=== PATIENT | female | born 1975 | race Caucasian/White ===

== ENCOUNTER → 2016-08-08 | Outpatient (CLI) | payer BC ==
--- NOTE | 2016-08-11 11:38 | MM ---
Reason for exam: screening (asymptomatic). Last mammogram was performed 1 year and 5 months ago. History: Patient is postmenopausal. Benign US RT VAD breast biopsy of the right breast, October 06, 2012. Taking hormonal contraceptives for 11 years beginning at age 25. Physical Findings: A clinical breast exam by your physician is recommended on an annual basis and results should be correlated with mammographic findings. MG Screening Mammo w CAD Bilateral CC and MLO view(s) were taken. Prior study comparison: February 21, 2015, bilateral MG screening mammo w CAD. April 09, 2012, CAD bilateral diagnostic mammogram. The breast tissue is heterogeneously dense. This may lower the sensitivity of mammography. No significant changes when compared with prior studies. ASSESSMENT: Benign, BI-RAD 2 RECOMMENDATION: Routine screening mammogram of both breasts in 1 year.
== END | disposition home or self-care (01) ==
LOC: RADMAMWWP 16:59
PROVIDERS: ATTEND Obstetrics & Gynecology
DX: Z12.31 Encounter for screening mammogram for malignant neoplasm of breast (principal)

== ENCOUNTER → 2017-09-18 | Outpatient (CLI) | payer BC ==
--- NOTE | 2017-09-21 12:02 | MM ---
Reason for exam: screening (asymptomatic). Last mammogram was performed 1 year and 1 month ago. History: Patient is postmenopausal. Benign US RT VAD breast biopsy of the right breast, October 06, 2012. Taking hormonal contraceptives for 11 years beginning at age 25. Physical Findings: A clinical breast exam by your physician is recommended on an annual basis and results should be correlated with mammographic findings. MG 3D Screening Mammo W/Cad Bilateral CC and MLO view(s) were taken. Prior study comparison: August 08, 2016, bilateral MG screening mammo w CAD. February 21, 2015, bilateral MG screening mammo w CAD. The breast tissue is extremely dense which could obscure a lesion on mammography. Finding: There are typically benign skin calcifications in both breasts. No suspicious abnormality. Right biopsy marker noted. No significant changes in finding since August 08, 2016 and February 21, 2015. ASSESSMENT: Benign, BI-RAD 2 RECOMMENDATION: Routine screening mammogram of both breasts in 1 year.
== END | disposition home or self-care (01) ==
LOC: RADMAMWWP 16:59
PROVIDERS: ATTEND Obstetrics & Gynecology
DX: Z12.31 Encounter for screening mammogram for malignant neoplasm of breast (principal)
CPT/HCPCS: 77063; 77067

== ENCOUNTER → 2018-09-23 | Outpatient (CLI) | payer BC ==
--- NOTE | 2018-09-24 10:23 | MM ---
Reason for exam: screening (asymptomatic). Last mammogram was performed 1 year ago. History: Benign US RT VAD breast biopsy of the right breast, October 06, 2012. Taking hormonal contraceptives for 18 years beginning at age 25. Physical Findings: A clinical breast exam by your physician is recommended on an annual basis and results should be correlated with mammographic findings. MG 3D Screening Mammo W/Cad Bilateral CC and MLO view(s) were taken. XCCL view(s) were taken of the right breast. Prior study comparison: September 18, 2017, bilateral MG 3d screening mammo w/cad. August 08, 2016, bilateral MG screening mammo w CAD. The breast tissue is heterogeneously dense. This may lower the sensitivity of mammography. Benign appearing stable bilateral calcifications. Previous mammotome biopsy in the right breast. No significant changes when compared with prior studies. ASSESSMENT: Benign, BI-RAD 2 RECOMMENDATION: Routine screening mammogram of both breasts in 1 year.
== END | disposition home or self-care (01) ==
LOC: RADMAMWWP 17:00
PROVIDERS: ATTEND Obstetrics & Gynecology
DX: Z12.31 Encounter for screening mammogram for malignant neoplasm of breast (principal)
CPT/HCPCS: 77063; 77067

== ENCOUNTER → 2020-03-01 | Outpatient (CLI) | payer BC ==
--- NOTE | 2020-03-01 09:04 | MM ---
Reason for exam: clinical finding. Last mammogram was performed 1 year and 5 months ago. History: Benign US RT VAD breast biopsy of the right breast, October 06, 2012. Taking hormonal contraceptives for 18 years beginning at age 25. Physical Findings: Nurse did not find any significant physical abnormalities on exam. MG 3D Diag Mammo W/Cad [facility] Bilateral CC and MLO view(s) were taken. Prior study comparison: September 23, 2018, bilateral MG 3d screening mammo w/cad. September 18, 2017, bilateral MG 3d screening mammo w/cad. Benign appearing bilateral calcifications. Previous mammotome biopsy in the right breast. These results were verbally communicated with the patient and result sheet given to the patient on 03/01/20. ASSESSMENT: Benign, BI-RAD 2 RECOMMENDATION: Routine screening mammogram of both breasts in 1 year.
--- NOTE | 2020-03-01 09:06 | USB ---
Reason for exam: clinical finding. History: Benign US RT VAD breast biopsy of the right breast, October 06, 2012. Taking hormonal contraceptives for 18 years beginning at age 25. US Breast Limited LT Left limited breast ultrasound including focal area of concern, retroareolar and axilla demonstrates a 8mm lymph node at the axilla tail. These results were verbally communicated with the patient and result sheet given to the patient on 03/01/20. ASSESSMENT: Benign, BI-RAD 2 RECOMMENDATION: Routine screening mammogram of both breasts in 1 year. Manage patient on a clinical basis.
== END | disposition home or self-care (01) ==
LOC: RADMAMWWP 06:56
PROVIDERS: ATTEND Obstetrics & Gynecology
DX: N63.20 Unspecified lump in the left breast, unspecified quadrant (principal); N63.10 Unspecified lump in the right breast, unspecified quadrant
CPT/HCPCS: 77062; 77066

== ENCOUNTER → 2021-07-29 | Outpatient (CLI) | payer BC ==
--- NOTE | 2021-08-01 11:12 | MM ---
Reason for exam: screening (asymptomatic). Last mammogram was performed 1 year and 5 months ago. History: Benign US RT VAD breast biopsy of the right breast, October 06, 2012. Taking hormonal contraceptives for 18 years beginning at age 25. Physical Findings: A clinical breast exam by your physician is recommended on an annual basis and results should be correlated with mammographic findings. MG 3D Screening Mammo W/Cad Bilateral CC and MLO view(s) were taken. Prior study comparison: March 01, 2020, bilateral MG 3d diag mammo w/cad [facility]. September 23, 2018, bilateral MG 3d screening mammo w/cad. The breast tissue is heterogeneously dense. This may lower the sensitivity of mammography. Previous mammotome biopsy in the right breast. Scattered benign punctate calcifications are unchanged. No significant changes when compared with prior studies. ASSESSMENT: Benign, BI-RAD 2 RECOMMENDATION: Routine screening mammogram of both breasts in 1 year. Patient should continue monthly self breast exams. A negative report should not preclude additional follow up of suspicious palpable abnormalities.
== END | disposition home or self-care (01) ==
LOC: RADMAMWWP 14:08
PROVIDERS: ATTEND Obstetrics & Gynecology
DX: Z12.31 Encounter for screening mammogram for malignant neoplasm of breast (principal)
CPT/HCPCS: 77063; 77067

== ENCOUNTER → 2023-01-13 | Outpatient (CLI) | payer BC ==
--- NOTE | 2023-01-14 08:28 | MM ---
Reason for Exam: Screening (asymptomatic). Last mammogram was performed 1 year(s) and 5 month(s) ago. Patient History: Menarche at age 12. First Full-Term at age 25. Currently using Hormonal Contraceptives, beginning at age 25 for 18 years. 10/06/2012, Benign Core Biopsy on the right side. Risk Values: Aniyah 5 year model risk: 1.3%. NCI Lifetime model risk: 12.1%. Prior Study Comparison: 09/23/2018 Bilateral Screening Mammogram, [facility]. 03/01/2020 Bilateral Diagnostic Mammogram, [facility]. 07/29/2021 Bilateral Screening Mammogram, [facility]. Tissue Density: The breast tissue is heterogeneously dense. This may lower the sensitivity of mammography. Findings: Analyzed By CAD. There is no suspicious group of microcalcifications or new suspicious mass in either breast. Scattered benign punctate calcifications are unchanged. Previous mammotome biopsy in the right breast. Overall Assessment: Benign, BI-RAD 2 Management: Screening Mammogram of both breasts in 1 year. A clinical breast exam by your physician is recommended on an annual basis and results should be correlated with mammographic findings. Note on Aniyah scores and lifetime risk: 1. A Aniyah score greater than 3% is considered moderate risk. If this is the case, consider specialist referral to assess eligibility for a risk reducing agent. If overall lifetime risk for the development of breast cancer is 20% or higher, the patient may qualify for future screening with alternating mammogram and breast MRI. Electronically signed and approved by: Joseph Arboleda D.O.
== END | disposition home or self-care (01) ==
LOC: RADMAMWWP 11:27
PROVIDERS: ATTEND Obstetrics & Gynecology
DX: Z12.31 Encounter for screening mammogram for malignant neoplasm of breast (principal)
CPT/HCPCS: 77063; 77067

== ENCOUNTER → 2023-11-20 | Outpatient (CLI) | payer BC ==
--- NOTE | 2023-11-20 10:50 | FL ---
EXAMINATION TYPE: FL UGI air DATE OF EXAM: 11/20/2023 8:54 AM CLINICAL INDICATION:Female, 48 years old with history of R10.13 epigastric pain; COMPARISON: None TECHNIQUE: The procedure was explained and patient history elicited. All patient questions were ans wered prior to start of procedure. A hockey scout radiograph of the abdomen was also reviewed. Multiple flu oroscopic spot images of the esophagus, stomach and duodenum were obtained following ingestion of liq uid barium and EZ-gas crystals. Fluoroscopic time: 1 minute 22 seconds Fluoroscopic images: 0 Radiographs taken: 51 DAP: [id number] [id number] FINDINGS: Upper GI examination: The hockey scout abdominal radiograph demonstrates a normal bowel gas pattern without dilated loops of small or large bowel. There is no evidence for organomegaly or pneumoperitoneum. No abnormal calcificat ions. The visualized osseous structures are intact. The esophagus appears unremarkable without evidence of focal stricture, ulceration or abnormal outpou cristel. No hiatal hernia was visualized. No evidence of gastroesophageal reflux was identified. The stomach and duodenum demonstrate a normal course and contour. There is no evidence of focal gastric or duodenal ulceration, stricture, or abnormal outpouching. IMPRESSION: Normal upper gastrointestinal examination.
[2023-11-20 11:50] LABS: Gliadin AB IgA, Deaminated Negative (Negative); Gliadin AB IgA, Unit <0.5 U/mL; Gliadin AB IgG, Deaminated Negative (Negative); Gliadin AB IgG, Unit <0.4 U/mL
== END | disposition home or self-care (01) ==
LOC: RADUSWWP 07:21
PROVIDERS: ATTEND Family Medicine
DX: R10.13 Epigastric pain (principal)
CPT/HCPCS: 74246; 83516

== ENCOUNTER → 2024-06-10 | Outpatient (CLI) | payer BC ==
--- NOTE | 2024-06-14 10:00 | MM ---
Reason for Exam: Screening (asymptomatic). Last mammogram was performed 1 year(s) and 5 month(s) ago. Patient History: Menarche at age 12. First Full-Term at age 25. Perimenopausal. Currently using Hormonal Contraceptives, beginning at age 25 for 18 years. 10/06/2012, Benign Core Biopsy on the right side. Risk Values: Aniyah 5 year model risk: 1.3%. NCI Lifetime model risk: 11.8%. Prior Study Comparison: 03/01/2020 Bilateral Diagnostic Mammogram, [facility]. 07/29/2021 Bilateral Screening Mammogram, [facility]. 01/13/2023 Bilateral MG 3D screening mammo w/cad, [facility]. Tissue Density: The breasts are extremely dense, which lowers the sensitivity of mammography. Findings: Analyzed By CAD. There is no suspicious group of microcalcifications or new suspicious mass in either breast. 9 appearing calcifications. Stable appearing lymph nodes in the left axilla. Postbiopsy changes right breast. Overall Assessment: Benign, BI-RAD 2 Management: Screening Mammogram of both breasts in 1 year. . Patient should continue monthly self-breast exams. A clinical breast exam by your physician is recommended on an annual basis. This exam should not preclude additional follow-up of suspicious palpable abnormalities. Note on Aniyah scores and lifetime risk: 1. A Aniyah score greater than 3% is considered moderate risk. If this is the case, consider specialist referral to assess eligibility for a risk reducing agent. 2. If overall lifetime risk for the development of breast cancer is 20% or higher, the patient may qualify for future screening with alternating mammogram and breast MRI. [facility], , 06/14/2024 9:58 AM. Electronically signed and approved by: Joe Bailon M.D. Radiologis
== END | disposition home or self-care (01) ==
LOC: RADMAMWWP 16:20
PROVIDERS: ATTEND Family Medicine
DX: Z12.31 Encounter for screening mammogram for malignant neoplasm of breast (principal); R92.343 Mammographic extreme density, bilateral breasts
CPT/HCPCS: 77063; 77067

== ENCOUNTER → 2024-06-21 | Outpatient (CLI) | payer BC ==
--- NOTE | 2024-06-21 09:35 | CT ---
EXAMINATION TYPE: CT abdomen wo/w con CT DLP: 953.5 mGycm, Automated exposure control for dose reduction was used. DATE OF EXAM: 06/21/2024 8:59 AM COMPARISON: Fluoroscopic upper GI 11/20/2023 CLINICAL INDICATION:Female, 48 years old with history of K21.9 reflux; RUQ pain, nausea and flank nati n TECHNIQUE: Standard CT of the abdomen before and after the uneventful administration of 100 mL of I sovue-370 intravenously. Oral contrast was administered. Coronal and sagittal reformats were performe d. FINDINGS: LOWER CHEST: Linear scarring or atelectasis within the lingula. Pectus excavatum. Trace pericardial e ffusion. ABDOMEN LIVER: No focal lesion. Enlarged measuring 20.0 cm in CC dimension. GALLBLADDER AND BILE DUCTS: Unremarkable. PANCREAS: Unremarkable. SPLEEN: Unremarkable. ADRENAL GLANDS: Unremarkable. KIDNEYS AND URETERS: No evidence of hydronephrosis. No right renal calculi. Punctate nonobstructive l eft renal calculus. The kidneys enhance symmetrically. Contrast is demonstrated within both collectin g systems on the delayed phase. STOMACH AND BOWEL: Stomach and duodenum are unremarkable. Enteric contrast reaches the distal small b owel. The appendix is within normal limits. No focal bowel wall thickening or surrounding inflammator y changes. No evidence of bowel obstruction. PERITONEUM: No evidence of pneumoperitoneum or free fluid. VASCULATURE: No evidence of aortic aneurysm. MUSCULOSKELETAL: No acute osseous abnormalities LYMPH NODES: No evidence for lymphadenopathy. SOFT TISSUE/ABDOMINAL WALL: Unremarkable IMPRESSION: 1. No CT evidence for an acute abdominal process. 2. Hepatomegaly. 3. Nonobstructive punctate left renal calculus. 4. Pectus excavatum. [facility], , 06/21/2024 9:33 AM
== END | disposition home or self-care (01) ==
LOC: RADCTMAIN 07:32
PROVIDERS: ATTEND Family Medicine
DX: K21.9 Gastro-esophageal reflux disease without esophagitis (principal); R16.0 Hepatomegaly, not elsewhere classified; N20.0 Calculus of kidney; Q67.6 Pectus excavatum; E66.9 Obesity, unspecified; Z68.30 Body mass index [BMI] 30.0-30.9, adult; K29.60 Other gastritis without bleeding
CPT/HCPCS: 74170; Q9967

== ENCOUNTER 2024-11-03 10:37 | Emergency (ER) | payer BC ==
--- NOTE | 2024-11-03 10:58 | ED ---
Abdominal Pain HPI - General Chief Complaint: Abdominal Pain Stated Complaint: Abd/back pain,Nausea Time Seen by Provider: 11/03/24 10:43 Source: patient, RN notes reviewed Mode of arrival: ambulatory Limitations: no limitations - History of Present Illness Initial Comments: This is a 49-year-old female who presents to the emergency department for abdomi nal pain. States that she has been dealing with epigastric/right upper quadrant pain for about a year. It is almost becoming a daily occurrence at this point. States that she has had outpatient CT scans, but has not yet had an ultrasound of her gallbladder. The CT scans have been normal. States that today the pain started to flare up on her around 7 AM, however it is much more severe than it typically is. She has nausea and radiation into the back. She had noodles and sauce for dinner last night. However, she states that almost anything she eats flares it up at this point. Denies any fevers/chills or changes in bowel or bladder habits. She does have a consultation with Dr. Patterson scheduled on 11/15. Complaint: abdominal pain - Related Data Home Medications Medication Instructions Recorded Confirmed Famotidine [Pepcid] 20 mg PO BID PRN 11/03/24 11/03/24 PARoxetine [Paxil] 10 mg PO DAILY 11/03/24 11/03/24 Pantoprazole [Protonix] 40 mg PO BID 11/03/24 11/03/24 RX: Cetirizine HCl 10 mg PO DAILY 11/03/24 11/03/24 SUMAtriptan succinate [Imitrex] 25 mg PO BID PRN 11/03/24 11/03/24 norethindrone-e.estradioL-iron 1 tab PO DAILY 11/03/24 11/03/24 [Amanda 24 Fe 1 mg-20 Mcg Tablet] Previous Rx's Medication Instructions Recorded HYDROcodone/APAP 7.5-325MG [Ravenna 1 tab PO Q4H PRN 3 Days #18 tab 11/03/24 7.5-325] Ketorolac [Toradol] 10 mg PO Q6HR PRN #15 tab 11/03/24 Ondansetron Odt [Zofran Odt] 4 mg PO Q8HR PRN #15 tab 11/03/24 Allergies Allergy/AdvReac Type Severity Reaction Status Date / Time No Known Allergies Allergy Verified 11/03/24 12:52 Review of Systems ROS Statement: Those systems with pertinent positive or pertinent negative responses have been documented in the HPI. ROS Other: All systems not noted in ROS Statement are negative. Past Medical History Past Medical History: No Reported History Past Surgical History: No Surgical Hx Reported Smoking Status: Never smoker General Exam Limitations: no limitations General appearance: alert, in distress Head exam: Present: atraumatic, normocephalic, normal inspection Respiratory exam: Present: normal lung sounds bilaterally. Absent: respiratory distress, wheezes, rales, rhonchi, stridor Cardiovascular Exam: Present: regular rate, normal rhythm GI/Abdominal exam: Present: soft, tenderness (Epigastric and RUQ), normal bowel sounds. Absent: distended Neurological exam: Present: alert, oriented X3, CN II-XII intact Psychiatric exam: Present: normal affect, normal mood Skin exam: Present: warm, dry, intact, normal color. Absent: rash Course Vital Signs 11/03/24 11/03/24 11/03/24 10:39 11:40 12:30 Temperature 97.8 F Pulse Rate 76 65 69 Respiratory 16 24 18 Rate Blood Pressure 157/77 145/76 136/93 O2 Sat by Pulse 98 99 97 Oximetry 11/03/24 14:09 Temperature 97.7 F Pulse Rate 66 Respiratory 18 Rate Blood Pressure 129/70 O2 Sat by Pulse 99 Oximetry Medical Decision Making - Medical Decision Making This is a 49 year old female who presents to the emergency department for abdominal pain. Was pt. sent in by a medical professional or institution? @ -No Did you speak to anyone other than the patient for history? @ -No Did you review nursing and triage notes? @ -Yes, and I agree, it is accurate with regards to the patient's symptoms. Were old charts reviewed? @ -No Differential Diagnosis? @ -Differential Abdominal Pain Women: Appendicitis, Cholecystitis, diverticulosis, ischemic bowel, pancreatitis, hepatitis, UTI, gastroenteritis, AAA, incarcerated hernia, bowel obstruction, constipation, inflammatory bowel, hepatitis, peptic ulcer disease, splenic infar ction, perforated viscus, vulvitis, ovarian torsion, PID, kidney stone, placenta abruption, this is not meant to be an all-inclusive list EKG interpreted by me (3pts min.)? @ -EKG interpreted by me demonstrating the following: Sinus rhythm. Ventricular rate 68 bpm, WI interval 168 ms, QRS duration 93 ms, QTc 418 ms. X-rays interpreted by me (1pt min.)? @ -Not obtained CT interpreted by me (1pt min.)? @ -Not obtained U/S interpreted by me (1pt. min.)? @ -Gallbladder ultrasound obtained. My interpretation identifies no gallbladder wall thickening. What testing was considered but not performed? (CT, X-rays, U/S, labs)? Why? @ -None What meds were considered but not given? Why? @ -None Did you discuss the management of the patient with other professionals? @ -No Did you reconcile home meds? @ -No Was smoking cessation discussed for >3mins.? @ -No Was critical care preformed (if so, how long)? @ -No Were there social determinants of health that impacted care today? How? (Homelessness, low income, unemployed, alcoholism, drug addiction, transportation, low edu. Level, literacy, decrease access to med. care, [facility], rehab)? @ -No Was there de-escalation of care discussed even if they declined? (Discuss DNR or withdrawal of care, Hospice)? @ -No What co-morbidities impacted this encounter? (DM, HTN, Smoking, COPD, CAD, Cancer, CVA, Hep., AIDS, mental health diagnosis, sleep apnea, morbid obesity)? @ -None Was patient admitted / discharged? @ -Discharged. Lab work unremarkable. Gallbladder ultrasound demonstrates lay ering sludge without signs of acute cholecystitis. Patient had inquired about having surgery done either today or tomorrow. Advised that it is not acutely infected and because we are able to get her symptoms to a tolerable level, we cannot make it happen any faster. Case management made the patient an appointment with Dr. Zheng for 11/10. Advised that she can attend both appointments and follow up with whichever surgeon she chooses. Case management tried to reach out to Dr. Montano's office for a sooner appointment, however they were unable to reach anyone. Rx for Toradol, Raven[place], and Zofran provided for symptomatic management. Advised she follow a bland and low-fat diet in the meantime to reduce the risk of symptom recurrence. Patient discharged home in stable condition. Case discussed with ED attending Dr. Pandya. Return precautions reviewed in depth, the patient is instructed to return to the emergency department with any new, worsening, or concerning symptoms. Patient verbalized understanding. Undiagnosed new problem with uncertain prognosis? @ -None Drug Therapy requiring intensive monitoring for toxicity (Heparin, Nitro, Insulin, Cardizem)? @ -None Were any procedures done? @ -None Diagnosis/symptom? @ -Biliary colic, gallbladder sludge Acute, or Chronic, or Acute on Chronic? @ -Chronic Uncomplicated (without systemic symptoms) or Complicated (systemic symptoms)? @ -Uncomplicated Side effects of treatment? @ -None Exacerbation, Progression, or Severe Exacerbation] @ -Exacerbation Poses a threat to life or bodily function? @ -No - Lab Data Result diagrams: 11/03/24 11:00 11/03/24 11:00 Lab Results 11/03/24 11/03/24 11/03/24 Range/Units 11:00 11:00 11:00 WBC 7.22 (4.50-10.00) 10*3/uL RBC 4.49 (4.10-5.20) 10*6/uL Hgb 13.3 (12.0-15.0) g/dL Hct 38.4 (37.2-46.3) % MCV 85.5 (80.0-97.0) fL MCH 29.6 (27.0-32.0) pg MCHC 34.6 (32.0-37.0) g/dL Plt Count 379 (140-440) 10*3/uL MPV 11.1 (9.5-12.2) fL Immature Gran % (Auto) 1.0 % Neutrophils % 66.5 % Lymphocytes % 25.5 % Monocytes % 6.0 % Eosinophils % 0.3 % Basophils % 0.7 % Immature Gran # 0.07 H (0.00-0.04) 10*3/uL Neutrophils # 4.81 (1.80-7.70) 10*3/uL Lymphocytes # 1.84 (0.90-5.00) 10*3/uL Monocytes # 0.43 (0.20-1.00) 10*3/uL Eosinophils # 0.02 L (0.04-0.35) 10*3/uL Basophils # 0.05 (0.00-0.10) 10*3/uL Sodium 138 (137-145) mmol/L Potassium 4.0 (3.5-5.1) mmol/L Chloride 103 (98-107) mmol/L Carbon Dioxide 24 (22-30) mmol/L Anion Gap 11 mmol/L BUN 17 (7-17) mg/dL Creatinine 0.81 (0.52-1.04) mg/dL Est GFR (CKD-EPI)AfAm >90 (>60 ml/min/1.73 sqM) Est GFR (CKD-EPI)NonAf 86 (>60 ml/min/1.73 sqM) Glucose 98 (74-99) mg/dL Plasma Lactic Acid Trung 1.4 (0.7-2.0) mmol/L Calcium 9.9 (8.4-10.2) mg/dL Total Bilirubin 0.4 (0.2-1.3) mg/dL AST 21 (14-36) U/L ALT 21 (4-34) U/L Alkaline Phosphatase 62 (38-126) U/L Troponin I (0.000-0.034) ng/mL Total Protein 7.3 (6.3-8.2) g/dL Albumin 4.2 (3.5-5.0) g/dL Amylase 51 (30-110) U/L Lipase 70 (23-300) U/L // Range/Units 11:00 WBC (4.50-10.00) 10*3/uL RBC (4.10-5.20) 10*6/uL Hgb (12.0-15.0) g/dL Hct (37.2-46.3) % MCV (80.0-97.0) fL MCH (27.0-32.0) pg MCHC (32.0-37.0) g/dL Plt Count (140-440) 10*3/uL MPV (9.5-12.2) fL Immature Gran % (Auto) % Neutrophils % % Lymphocytes % % Monocytes % % Eosinophils % % Basophils % % Immature Gran # (0.00-0.04) 10*3/uL Neutrophils # (1.80-7.70) 10*3/uL Lymphocytes # (0.90-5.00) 10*3/uL Monocytes # (0.20-1.00) 10*3/uL Eosinophils # (0.04-0.35) 10*3/uL Basophils # (0.00-0.10) 10*3/uL Sodium (137-145) mmol/L Potassium (3.5-5.1) mmol/L Chloride (98-107) mmol/L Carbon Dioxide (22-30) mmol/L Anion Gap mmol/L BUN (7-17) mg/dL Creatinine (0.52-1.04) mg/dL Est GFR (CKD-EPI)AfAm (>60 ml/min/1.73 sqM) Est GFR (CKD-EPI)NonAf (>60 ml/min/1.73 sqM) Glucose (74-99) mg/dL Plasma Lactic Acid Trung (0.7-2.0) mmol/L Calcium (8.4-10.2) mg/dL Total Bilirubin (0.2-1.3) mg/dL AST (14-36) U/L ALT (4-34) U/L Alkaline Phosphatase (38-126) U/L Troponin I <0.012 (0.000-0.034) ng/mL Total Protein (6.3-8.2) g/dL Albumin (3.5-5.0) g/dL Amylase (30-110) U/L Lipase (23-300) U/L - Radiology Data Radiology results: report reviewed, image reviewed Disposition Clinical Impression: Biliary colic, Gallbladder sludge Disposition: HOME SELF-CARE Instructions (If sedation given, give patient instructions): Biliary Colic (ED) Additional Instructions: Return to the emergency department with any new, worsening, or concerning symptoms. Take the Toradol with Tylenol as needed for pain relief. If you choose to take the Toradol, do not take any other anti-inflammatories such as ibuprofen, take one or the other. Take the [place] sparingly when your pain is the most severe. Follow a very bland low-fat diet in the meantime to reduce the risk of symptom recurrence. You can follow-up with both Dr. Zheng and Dr. Patterson and see which surgeon you prefer and which can schedule your surgery the fastest. You can also try contacting Dr. Montano's office listed below. Prescriptions: HYDROcodone/APAP 7.5-325MG [Raven[place] 7.5-325] 1 tab PO Q4H PRN 3 Days #18 tab PRN Reason: Pain Ketorolac [Toradol] 10 mg PO Q6HR PRN #15 tab PRN Reason: Pain Ondansetron Odt [Zofran Odt] 4 mg PO Q8HR PRN #15 tab PRN Reason: Nausea And Vomiting Is patient prescribed a controlled substance at d/c from ED?: Yes When asked, does pt state using other controlled substances?: No If prescribed controlled substance>3 days was MAPS reviewed?: Prescribed <3 Days Referrals: Sergio Bateman MD [Primary Care Provider] - 1-2 days Nathaniel Montano DO [Doctor of Osteopathic Medicine] - (Contact if wanting a sooner appointment with genral surgery) Benigno Zheng MD [STAFF PHYSICIAN] - 11/10/24 2:15 pm (Please bring ID and insurance card, you will have new patient information to complete. ) Time of Disposition: 13:56
[2024-11-03] MEDS: ONDANSETRON 4 MG/2 ML VIAL IVP STA (11:06)
[2024-11-03] MEDS: HYDROmorphone 0.5 MG/0.5 ML SYRINGE IVP STA (11:07)
[2024-11-03] MEDS: KETOROLAC 15 MG/ML 1 ML VIAL IVP STA (11:07)
[2024-11-03] MEDS: SODIUM CHLORIDE 0.9% 1,000 ML IV ONE (11:07)
[2024-11-03 11:37] LABS: Basophils # (A) 0.05 10*3/uL (0.00-0.10); Basophils % (A) 0.7 %; Eosinophils # (A) 0.02 10*3/uL (0.04-0.35); Eosinophils % (A) 0.3 %; HCT 38.4 % (37.2-46.3); HGB 13.3 g/dL (12.0-15.0); Lymphocytes # (A) 1.84 10*3/uL (0.90-5.00); Lymphocytes % (A) 25.5 %; MCH 29.6 pg (27.0-32.0); MCHC 34.6 g/dL (32.0-37.0); MCV 85.5 fL (80.0-97.0); Mean Platelet Volume 11.1 fL (9.5-12.2); Monocytes # (A) 0.43 10*3/uL (0.20-1.00); Neutrophils # (A) 4.81 10*3/uL (1.80-7.70); Neutrophils % (A) 66.5 %; Platelet Count 379 10*3/uL (140-440); RBC 4.49 10*6/uL (4.10-5.20); RDW 12.5 % (11.5-14.5); WBC 7.22 10*3/uL (4.50-10.00)
--- NOTE | 2024-11-03 11:50 | US ---
EXAMINATION TYPE: US gallbladder DATE OF EXAM: 11/03/2024 COMPARISON: CT: 06/21/24 CLINICAL INDICATION: Female, 49 years old with history of RUQ pain; RUQ pain for 2 hours TECHNIQUE: Grayscale and color Doppler imaging of the right upper quadrant was performed. FINDINGS: EXAM MEASUREMENTS: Liver Length: 14.2 cm Gallbladder Wall: 0.19 cm CBD: 0.47 cm Right Kidney: 10.4 x 5.2 x 4.9 cm Pancreas: Suboptimal visualization of the pancreatic head due to shadowing from bowel gas. Most of t he body and tail are visualized. Liver: Overall homogeneous appearance. No focal liver lesion. Gallbladder: Trace layer of sludge. No shadowing stones. No abnormal distention or wall thickening o r surrounding fluid. Evidence for sonographic Carcamo's sign: no CBD: wnl Right Kidney: wnl IMPRESSION: 1. Some trace layering sludge in the gallbladder. No stones or ancillary findings of acute cholecysti tis. 2. No biliary ductal dilatation. [facility], , 11/03/2024 11:47 AM
[2024-11-03 12:00] LABS: ALT 21 U/L (4-34); AST 21 U/L (14-36); African American GFR (CKD) >90 (>60 ml/min/1.73 sqM); Albumin 4.2 g/dL (3.5-5.0); Alkaline Phosphatase 62 U/L (38-126); Amylase 51 U/L (30-110); Anion Gap 11 mmol/L; Blood Urea Nitrogen 17 mg/dL (7-17); Calcium 9.9 mg/dL (8.4-10.2); Carbon Dioxide 24 mmol/L (22-30); Chloride 103 mmol/L (98-107); Glucose 98 mg/dL (74-99); Lipase 70 U/L (23-300); Non-African American GFR(CKD) 86 (>60 ml/min/1.73 sqM); Sodium 138 mmol/L (137-145); Total Bilirubin 0.4 mg/dL (0.2-1.3); Total Protein 7.3 g/dL (6.3-8.2)
[2024-11-03] MEDS: FAMOTIDINE 20 MG/2 ML VIAL IV STA (12:27)
[2024-11-03 12:31] VITALS: RESP 18
[2024-11-03] MEDS: HYDROmorphone 1 MG/ML 1 ML SYRINGE IVP STA (12:31)
[2024-11-03 14:10] VITALS: BP 129/70; PULSE 66; TEMP 97.7
== END 2024-11-03 14:19 | disposition home or self-care (01) ==
LOC: EC 10:37
DX: K80.50 Calculus of bile duct without cholangitis or cholecystitis without obstruction (principal); K82.8 Other specified diseases of gallbladder
CPT/HCPCS: 36415; 93005; 80053; 82150; 83605; 83690; 84484; 85025; 76705; 99285; 96374; 96375 ×3; 96376; 96361; J2405; J1171 ×2; J1885; J1308

== ENCOUNTER → 2024-11-23 | Day surgery (SDC) | payer BC ==
[2024-11-18 13:05] VITALS: BMI 30.7
[~2024-11-23] MED LIST: GLYCOPYRROLATE 0.2 MG/ML 2 ML VIAL ONE; HYDROmorphone (PF) 1 MG/ML ONE; HYDROmorphone 0.5 MG/0.5 ML SYRINGE IVP PRN; LIDOCAINE 1% (10MG/ML) FOR IV START INTRADERMA PRN; LIDOCAINE 1% INJ 10MG/ML (20 ML MDV) ONE; MIDAZOLAM 2 MG/2 ML VIAL ONE; NEOSTIGMINE 1 MG/ML 10 ML VIAL ONE; PROPOFOL 10 MG/ML 20 ML VIAL IV ONE; ROCURONIUM 10 MG/ML (5 ML VIAL) IV ONE; SCOPOLAMINE 1 MG/72 HR PATCH TRANSDERM ONE; SUCCINYLCHOLINE CHLORIDE 200 MG/10 ML VIAL IV ONE; diphenhydrAMINE 50 MG/ML 1 ML VIAL ONE; ePHEDrine 50 MG/ML 1 ML VIAL ONE; fentaNYL (PF) 50 MCG/ML 2 ML AMP ONE
[2024-11-23] MEDS: IV FLUID CONTINUATION 1,000 ML IV ONE (08:42)
[2024-11-23] MEDS: LACTATED RINGERS 1,000 ML IV SCH (08:42)
[2024-11-23] MEDS: DEXAMETHASONE SOD PHOSPHATE 4 MG/ML 1 ML VIAL IV ONE (08:46)
[2024-11-23] MEDS: ONDANSETRON 4 MG/2 ML VIAL IVP ONE (08:46)
[2024-11-23] MEDS: HEPARIN SODIUM,PORCINE 5,000 UNIT/ML 1 ML VIAL SQ PRN (08:46)
[2024-11-23] MEDS: INDOCYANINE GREEN 25 MG VIAL IV PRN (08:52)
[2024-11-23] MEDS: ceFAZolin 2 GM in DEXTROSE 5% IN WATER 50 ML IVPB PRN (09:15)
[2024-11-23] MEDS: BUPIVACAINE (PF) 0.25% 30 ML VIAL SQ ONE ×2 (09:31)
[2024-11-23 10:25] VITALS: TEMP 97.9
--- NOTE | 2024-11-23 10:27 | P.OP ---
Date of Procedure: 11/23/24 Preoperative Diagnosis: Chronic calculus cholecystitis Postoperative Diagnosis: Chronic calculus cholecystitis Procedure(s) Performed: Robotic Cholecystectomy Anesthesia: KRISTOPHER Surgeon: Nathaniel Montano Pathology: other (Gallbladder and contents) Condition: stable Disposition: same day Indications for Procedure: 49-year-old female with complaint of right upper quadrant pain that has been going on and worsening. On workup she is found to have cholelithiasis. Plan is for robotic cholecystectomy. Risks, benefits and alternatives were provided to the patient. All questions answered. Operative Findings: Distended gallbladder Description of Procedure: Patient was brought to the operating suite and placed in supine position on the operating table. Sedation was provided by anesthesia and the patient underwent endotracheal intubation. The patient was then prepped and draped in regular sterile fashion. An infraumbilical incision was made and dissection was carried to the fascia. The fascia was incised and an 8 mm trocar was placed. Pneumope ritoneum was achieved. The patient was then placed in appropriate position. 2 additional 8 mm trocars were placed in the right upper quadrant and 1 in the left upper quadrant. Robot was then docked. The gallbladder was then grasped and retracted superiorly and laterally. The gallbladder appeared distended with some fatty infiltration. Dissection was carried along the infundibulum towards the cystic duct and the cystic duct was skeletonized. The cystic artery was similarly skeletonized and critical view was obtained. ICG was used to confirm anatomy. 2 clips were placed proximally on the cystic duct and 1 was placed distally and the cystic duct was ligated. Similarly, 2 clips were placed proximally on the cystic artery and 1 was placed distally and the cystic artery was ligated. Cautery was then used to dissect the gallbladder off of the gallbladder fossa. The gallbladder was then placed in an Endo Catch bag and removed from the abdomen from the infraumbilical incision site. Hemostasis was noted to be maintained. No bile leakage was noted. The infraumbilical fascial incision was closed under direct visualization using an 0 Vicryl suture and Santy-Lorene device. Pneumoperitoneum was released. All ports removed from the abdomen. All port sites were closed with 4-0 Vicryl subcuticular suture. Sterile dressing was applied. The patient was taken to postanesthesia care unit in stable condition. Sponge and instrument count correct x 2.
[2024-11-23 11:00] VITALS: RESP 16
[2024-11-23 12:11] VITALS: BP 109/69; PULSE 75
== END | disposition home or self-care (01) ==
LOC: OR 08:09
PROVIDERS: ATTEND Surgery
DX: K81.1 Chronic cholecystitis (principal)
CPT/HCPCS: 47562; S2900; 81025; 88304

== ENCOUNTER 2025-02-02 09:25 | Day surgery (SDC) | payer BC ==
[2025-02-01 09:21] VITALS: BMI 29.0
[2025-02-02] MEDS: IV FLUID CONTINUATION 1,000 ML IV ONE (09:35)
[2025-02-02 09:49] VITALS: RESP 16; TEMP 97.8
[2025-02-02] MEDS: LACTATED RINGERS 1,000 ML IV SCH (09:54)
[2025-02-02] MEDS ORDERED: LIDOCAINE 1% INJ 10MG/ML (20 ML MDV) ONE (11:06)
[2025-02-02] MEDS ORDERED: PROPOFOL 10 MG/ML 20 ML VIAL IV ONE (11:06)
--- NOTE | 2025-02-02 11:25 | P.PCN ---
Date of Procedure: 02/02/25 Preoperative Diagnosis: GERD Postoperative Diagnosis: Duodenitis Procedure(s) Performed: EGD with biopsy Anesthesia: MARINE Surgeon: Nathaniel Montano Pathology: other (Biopsy of GE junction, antrum, duodenum) Condition: stable Disposition: same day Indications for Procedure: 49-year-old female presents with concern for epigastric pain and GERD. She did undergo cholecystectomy over the last year and states that symptoms from her gallbladder disease have given her some relief of this discomfort, however she still has symptoms of pain and GERD. Risks, benefits and alternatives were provided. All questions answered Operative Findings: Duodenitis Description of Procedure: The patient was brought into the endoscopy suite and placed in left lateral decubitus position. Adequate sedation was achieved using conscious sedation. A bite-block was placed and an endoscope was placed in the oropharynx and advanced under endoscopic visualization. The endoscope was advanced through the esophagus into the stomach, through the gastric antrum and in through the pylorus. The third portion of duodenum was visualized. The endoscope was then slowly withdrawn. The first portion of duodenum was noted to have inflammatory changes. Biopsies were taken. The antrum was noted to have inflammatory changes. Biopsies were taken. The gastric body distended normally and the gastric folds appeared normal and flattened with insufflation. A retroflexed view of the fundus and GE junction revealed no significant hiatal hernia. GE junction appeared normal and biopsies were taken. The esophagus appeared endoscopically normal. Excess air was removed and the scope was withdrawn and the procedure was completed. The patient was sent to PACU in stable condition.
[2025-02-02 11:28] VITALS: BP 106/53; PULSE 50
== END 2025-02-02 12:12 | disposition home or self-care (01) ==
LOC: ORWHC2ENDO 09:25
PROVIDERS: ATTEND Surgery
DX: K29.50 Unspecified chronic gastritis without bleeding (principal); K21.9 Gastro-esophageal reflux disease without esophagitis; K29.80 Duodenitis without bleeding; Z79.899 Other long term (current) drug therapy
CPT/HCPCS: 81025; 88305; 88312; 88342; 43239; J2003; J2704